=== PATIENT | female | born 1960 | race Caucasian/White ===

== ENCOUNTER → 2016-07-28 | Outpatient (CLI) | payer OTHER | LOC: BRMIMAGING 14:53 | PROVIDERS: ATTEND Physician Assistant | DX: Z12.31 Encounter for screening mammogram for malignant neoplasm of breast (principal); M43.12 Spondylolisthesis, cervical region | CPT/HCPCS: 72040-PO; G0202 ==

== ENCOUNTER → 2016-08-17 | Outpatient (CLI) | payer OTHER | LOC: BRMIMAGING 09:27 | PROVIDERS: ATTEND Physician Assistant | DX: R92.8 Other abnormal and inconclusive findings on diagnostic imaging of breast (principal) | CPT/HCPCS: 76641-PO; G0206 ==

== ENCOUNTER → 2017-09-10 | Outpatient (CLI) | payer OTHER | LOC: BRMIMAGING 11:02 | PROVIDERS: ATTEND Physician Assistant | DX: Z12.31 Encounter for screening mammogram for malignant neoplasm of breast (principal) ==